=== PATIENT | male | born 1965 | race Caucasian/White ===

== ENCOUNTER → 2016-10-03 | Outpatient (CLI) | payer OTHER | LOC: BMCIMAGING 14:26 | PROVIDERS: ATTEND Internal Medicine | DX: M47.894 Other spondylosis, thoracic region (principal) ==

== ENCOUNTER → 2017-01-10 | Outpatient (CLI) | payer OTHER | LOC: FIMAGING 11:55 | PROVIDERS: ATTEND Internal Medicine | DX: M54.5 Low back pain (principal); R10.9 Unspecified abdominal pain ==

== ENCOUNTER → 2017-10-17 | Outpatient (CLI) | payer OTHER | LOC: BMCIMAGING 09:18 | PROVIDERS: ATTEND Orthopaedic Surgery | DX: M25.552 Pain in left hip (principal) ==